=== PATIENT | female | born 2005 | race Caucasian/White ===

== ENCOUNTER 2024-04-02 00:38 | Emergency (ER) | payer BC, OTHER ==
--- NOTE | 2024-04-02 01:04 | ERPHSYRPT ---
- History of Present Illness Time Seen by Provider: 04/02/24 01:04 Historian: patient Exam Limitations: no limitations Allergies/Adverse Reactions: No Known Drug Allergies Allergy (Verified 04/02/24 02:15) Home Medications: Norgestimate-Ethinyl Estradiol [Norg-Ee 0.18-0.215-0.25/0.035] 1 each PO DAILY 04/02/24 [History] Hx Tetanus, Diphtheria Vaccination/Date Given: Yes Hx Influenza Vaccination/Date Given: Yes Hx Pneumococcal Vaccination/Date Given: No - Past Medical History Pertinent Past Medical History: Yes Neurological History: No Pertinent History Cardiac History: No Pertinent History Respiratory History: Asthma Endocrine Medical History: No Pertinent History Musculoskeletal History: Other - Past Surgical History Past Surgical History: No - Female History Hx Last Menstrual Period: N/A - Social History Smoking Status: Never smoker Exposure to second hand smoke: No Drug Use: none Patient Lives Alone: No - Nursing Vital Signs Nursing Vital Signs: Initial Vital Signs Pulse Rate 124 H 04/02/24 00:53 Respiratory Rate 18 04/02/24 00:53 Blood Pressure 150/94 04/02/24 00:53 O2 Sat by Pulse Oximetry 100 04/02/24 00:53 Pain Scale Pain Intensity 5 Ordered Tests: Active Orders 24 hr Category Date Time Status IV Insertion STAT Care 04/02/24 01:05 Active ABDOMEN AND PELVIS W&WO CONTRA [CT] Stat Exams 04/02/24 01:07 Completed CBC W DIFF Stat Lab 04/02/24 01:18 Completed CMP Stat Lab 04/02/24 01:18 Completed Erythrocyte Sedimentation Rate Stat Lab 04/02/24 01:07 Completed HCG QUALITATIVE, SERUM Stat Lab 04/02/24 01:18 Results Lactic Acid Stat Lab 04/02/24 01:10 Completed OB-FECAL SCREEN Stat Lab 04/02/24 01:18 Results Medication Summary Discontinued Medications Generic Name Dose Route Start Last Admin Trade Name Freq PRN Reason Stop Dose Admin Sodium Chloride 1,000 mls @ 999 mls/hr 04/02/24 01:05 04/02/24 01:43 Sodium Chloride 0.9% 1000 Ml IV 04/02/24 02:05 999 mls/hr .Q1H1M STA Administration Sodium Chloride Confirm 04/02/24 01:37 Sodium Chloride 0.9% 1000 Ml Administered 04/02/24 01:38 Dose 1,000 mls @ ud .ROUTE .STK-MED ONE Morphine Sulfate 2 mg 04/02/24 01:05 04/02/24 01:42 Morphine Sulfate 2 Mg/Ml Inj IV 04/02/24 01:06 2 mg STAT ONE Administration Morphine Sulfate Confirm 04/02/24 01:37 Morphine Sulfate 2 Mg/Ml Inj Administered 04/02/24 01:38 Dose 2 mg .ROUTE .STK-MED ONE Ondansetron HCl 8 mg 04/02/24 01:08 04/02/24 01:42 Ondansetron Hcl 4 Mg/2 Ml Vial IV 04/02/24 01:09 8 mg STAT ONE Administration Ondansetron HCl Confirm 04/02/24 01:36 Ondansetron Hcl 4 Mg/2 Ml Vial Administered 04/02/24 01:37 Dose 8 mg .ROUTE .STK-MED ONE Lab/Rad Data: Laboratory Result Diagrams 04/02/24 01:18 04/02/24 01:18 Laboratory Results 04/02/24 04/02/24 04/02/24 Range/Units 01:18 01:18 01:18 WBC 15.6 H (3.98-10.04) x10^3/uL RBC 5.48 H (3.93-5.22) x10^6/uL Hgb 17.0 H (11.2-15.7) g/dL Hct 49.3 H (34.1-44.9) % MCV 90.0 (79.4-94.8) fL MCH 31.0 (25.6-32.2) pg MCHC 34.5 (32.2-35.5) g/dL RDW 11.9 (11.7-14.4) % Plt Count 375 H (182-369) x10^3/uL MPV 9.7 (9.4-12.3) fL Gran % 86.2 H (34.0-71.1) % Immature Gran % (Auto) 0.2 (0.001-0.429) % Nucleat RBC Rel Count 0.0 (0.00-0.2) % Eos # (Auto) 0.06 (0.04-0.36) x10^3/uL Immature Gran # (Auto) 0.03 (0.001-0.031) x10^3u/L Absolute Lymphs (auto) 1.05 L (1.18-3.74) x10^3/uL Absolute Monos (auto) 0.97 H (0.24-0.86) x10^3/uL Absolute Nucleated RBC 0.00 (0.00-0.012) x10^3u/L Lymphocytes % 6.7 L (19.3-51.7) % Monocytes % 6.2 (4.7-12.5) % Eosinophils % 0.4 L (0.7-5.8) % Basophils % 0.3 (0.1-1.2) % Absolute Granulocytes 13.47 H (1.56-6.13) x10^3/uL Basophils # 0.05 (0.01-0.08) x10^3/uL ESR (0-20) mm/hr Sodium 136 (135-145) mmol/L Potassium 3.8 (3.5-5.1) mmol/L Chloride 101 (98-107) mmol/L Carbon Dioxide 20 L (22-30) mmol/L Anion Gap 18.3 H (5-15) MEQ/L BUN 12 (7-17) mg/dL Creatinine 0.85 (0.52-1.04) mg/dL Estimated GFR 101.2 ML/MIN Glucose 182 H (74-106) mg/dL Lactic Acid (0.4-2.0) Calcium 9.8 (8.4-10.2) mg/dL Total Bilirubin 0.80 (0.2-1.3) mg/dL AST 40 H (14-36) U/L ALT 27 (0-35) U/L Alkaline Phosphatase 117 (38-126) U/L Serum Total Protein 8.5 H (6.3-8.2) g/dL Albumin 5.0 (3.5-5.0) g/dL Serum HCG, Qual NEGATIVE (NEGATIVE) Stl Occult Blood (IFOB) Pending 04/02/24 04/02/24 Range/Units 01:10 01:07 WBC (3.98-10.04) x10^3/uL RBC (3.93-5.22) x10^6/uL Hgb (11.2-15.7) g/dL Hct (34.1-44.9) % MCV (79.4-94.8) fL MCH (25.6-32.2) pg MCHC (32.2-35.5) g/dL RDW (11.7-14.4) % Plt Count (182-369) x10^3/uL MPV (9.4-12.3) fL Gran % (34.0-71.1) % Immature Gran % (Auto) (0.001-0.429) % Nucleat RBC Rel Count (0.00-0.2) % Eos # (Auto) (0.04-0.36) x10^3/uL Immature Gran # (Auto) (0.001-0.031) x10^3u/L Absolute Lymphs (auto) (1.18-3.74) x10^3/uL Absolute Monos (auto) (0.24-0.86) x10^3/uL Absolute Nucleated RBC (0.00-0.012) x10^3u/L Lymphocytes % (19.3-51.7) % Monocytes % (4.7-12.5) % Eosinophils % (0.7-5.8) % Basophils % (0.1-1.2) % Absolute Granulocytes (1.56-6.13) x10^3/uL Basophils # (0.01-0.08) x10^3/uL ESR 7 (0-20) mm/hr Sodium (135-145) mmol/L Potassium (3.5-5.1) mmol/L Chloride (98-107) mmol/L Carbon Dioxide (22-30) mmol/L Anion Gap (5-15) MEQ/L BUN (7-17) mg/dL Creatinine (0.52-1.04) mg/dL Estimated GFR ML/MIN Glucose (74-106) mg/dL Lactic Acid 4.5 H (0.4-2.0) Calcium (8.4-10.2) mg/dL Total Bilirubin (0.2-1.3) mg/dL AST (14-36) U/L ALT (0-35) U/L Alkaline Phosphatase (38-126) U/L Serum Total Protein (6.3-8.2) g/dL Albumin (3.5-5.0) g/dL Serum HCG, Qual (NEGATIVE) Stl Occult Blood (IFOB) - Departure Departure Disposition: Home Clinical Impression: Nausea vomiting and diarrhea, Hematochezia, Colitis, Dehydration Condition: Good Critical Care Time: No Referrals: MATIAS ARITA NP [Primary Care Provider] - Follow up/PCP as directed MARY JANE VELEZ MD [ACTIVE STAFF] - Follow up/PCP as directed Instructions: Bloody stools in adults Prescriptions: Ondansetron ODT 4 MG [Zofran Odt 4 mg] 8 mg PO TID PRN 7 Days #21 tab PRN Reason: Nausea/Vomiting
[2024-04-02 01:21] LABS: Absolute Neutrophil Ct (ANC) 13.47 x10^3/uL (1.56-6.13); BASOPHIL % 0.3 % (0.1-1.2); Basophil (Absolute #) 0.05 x10^3/uL (0.01-0.08); Eosinophil % 0.4 % (0.7-5.8); Eosinophil (Absolute #) 0.06 x10^3/uL (0.04-0.36); Hematocrit 49.3 % (34.1-44.9); IMMATURE GRAN # 0.03 x10^3u/L (0.001-0.031); IMMATURE GRAN % 0.2 % (0.001-0.429); Lymphocyte (Absolute #) 1.05 x10^3/uL (1.18-3.74); Lymphocytes % 6.7 % (19.3-51.7); Mean Corpuscular Hgb Concent. 34.5 g/dL (32.2-35.5); Mean Platelet Volume 9.7 fL (9.4-12.3); Monocyte (Absolute #) 0.97 x10^3/uL (0.24-0.86); Monocytes % 6.2 % (4.7-12.5); Neutrophil % 86.2 % (34.0-71.1); Platelet Count 375 x10^3/uL (182-369); Red Blood Count 5.48 x10^6/uL (3.93-5.22); Red Cell Distribution Width 11.9 % (11.7-14.4); White Blood Count 15.6 x10^3/uL (3.98-10.04)
[2024-04-02] MEDS ORDERED: Zofran 4 MG/2 ML VIAL ONE (01:36)
[2024-04-02] MEDS ORDERED: MORPHINE SULFATE 2 MG INJ ONE (01:37)
[2024-04-02] MEDS ORDERED: Sodium Chloride 0.9% 1000 ML 1,000 ML ONE (01:37)
[2024-04-02] MEDS: Zofran 4 MG/2 ML VIAL IV ONE (01:42)
[2024-04-02] MEDS: MORPHINE SULFATE 2 MG INJ IV ONE (01:42)
[2024-04-02] MEDS: Sodium Chloride 0.9% 1000 ML 1,000 ML IV STA (01:43)
[2024-04-02 01:45] LABS: HCG SERUM TEST NEGATIVE (NEGATIVE)
[2024-04-02 01:47] LABS: ANION GAP 18.3 MEQ/L (5-15); BILIRUBIN,TOTAL 0.8 mg/dL (0.2-1.3); Calcium 9.8 mg/dL (8.4-10.2); Creatinine 1 0.85 mg/dL (0.52-1.04); EST GLOMERULAR FILTRATION RATE 101.2 ML/MIN; Potassium 3.8 mmol/L (3.5-5.1); Total Protein 8.5 g/dL (6.3-8.2)
--- NOTE | 2024-04-02 03:21 | XRAY ---
CLINICAL HISTORY: abd pain, rectal bleed COMPARISON: None. TECHNIQUE: Contiguous axial images were obtained from the level of the diaphragm to the pubic symphysis without and with intravenous contrast. Coronal and sagittal reconstructions were likewise performed and indicated to increase the sensitivity for detecting clinically relevant pathology. If IV contrast material had not been administered, the likelihood of detecting abnormalities relevant to the patient's condition would have been substantially decreased. CT scan was performed according to ALARA (as low as reasonable achievable). FINDINGS: The visualized lung bases are clear. The liver is normal in size and attenuation. No focal liver lesions are seen. There is no intra or extrahepatic biliary ductal dilatation. Hepatic vasculature is patent. The gallbladder is present. The spleen, pancreas, and adrenal glands are unremarkable. 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 The kidneys are normal in size and attenuation. There is no hydronephrosis or perinephric fat stranding. No renal calculi or renal masses are identified. The ureters are normal in caliber and no ureteral calculi are seen. The bladder is normal in contour. Pelvic viscera are unremarkable. No focal or diffuse bowel wall thickening or evidence of bowel obstruction is identified. The appendix is visualized in the right lower quadrant and appears within normal limits. Abdominal and pelvic vasculature is patent. No adenopathy or fluid collections are seen. No aggressive appearing osseous lesions are identified. 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 No other intra-abdominal abnormality seen. Electronically Signed by: Javier Torres MD. (04/02/2024 03:16:58 EST)
[2024-04-02 03:45] VITALS: BP 134/94; PULSE 96; RESP 18; O2SAT 96
== END 2024-04-02 04:03 | disposition home or self-care (01) ==
LOC: ED 00:38
DX: R11.2 Nausea with vomiting, unspecified (principal); K52.9 Noninfective gastroenteritis and colitis, unspecified; K92.1 Melena; E86.0 Dehydration
CPT/HCPCS: 36415; 74178; 80053; 83605; 84703; 85025; 85652; 96360; 96374; 96375; 99284; J2270; J2405